=== PATIENT | male | born 1985 | race Caucasian/White ===

== ENCOUNTER 2017-11-04 14:31 | Emergency (ER) | payer MEDICAID ==
[~2017-11-04] VITALS: Ht 177.8 cm; Wt 122.7 kg
[2017-11-04] MEDS ORDERED: IBUPROFEN 800 MG TABLET PO ONE (15:00)
[2017-11-04 15:39] LABS: INFLUENZA TYPE A NEGATIVE FOR TYPE A (NEGATIVE); INFLUENZA TYPE B NEGATIVE FOR TYPE B (NEGATIVE); RAPID GROUP A STREP NEGATIVE (NEGATIVE)
[2017-11-04 15:43] VITALS: BP 141/78
== END 2017-11-04 16:13 | disposition home or self-care (01) ==
LOC: EMS 14:35
DX: J02.8 Acute pharyngitis due to other specified organisms (principal); J06.9 Acute upper respiratory infection, unspecified; B97.89 Other viral agents as the cause of diseases classified elsewhere; Z87.891 Personal history of nicotine dependence
CPT/HCPCS: 87430; 87804; 99284